=== PATIENT | female | born 2000 | race Caucasian/White ===

== ENCOUNTER 2019-06-10 18:53 | Emergency (ER) | payer BC ==
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
== END 2019-06-10 20:53 | disposition home or self-care (01) ==
LOC: MW.ED 18:53
CPT/HCPCS: 99282; 99283